=== PATIENT | female | born 1950 | race Caucasian/White ===

== ENCOUNTER 2016-11-26 18:18 | Emergency (ER) | payer MEDICARE ==
[~2016-11-26] VITALS: Ht 170.2 cm; Wt 84.0 kg
[~2016-11-26 18:18] MED LIST: BC FPOW12; CIME200 PO; CLON1TAB PO; EZET10 PO; PERC5TAB12 PO; REME15TA PO
[2016-11-26 18:20] VITALS: BP 145/81; PULSE 78; RESP 16; TEMP 97.9; O2SAT 97
[2016-11-26] MEDS ORDERED: REME30TA PO (18:56)
[2016-11-26] MEDS ORDERED: BENA25TA6 PO (18:56)
[2016-11-26] MEDS ORDERED: TRAM50TA PO (18:56)
[2016-11-26] MEDS ORDERED: CLON1 PO (18:56)
[2016-11-26] MEDS ORDERED: ZANT150T2 PO (18:56)
[2016-11-26] MEDS ORDERED: BAYE325T PO (18:56)
[2016-11-26 19:05] VITALS: BP 164/62; PULSE 78; RESP 18; TEMP 97.9; O2SAT 97
[2016-11-26] MEDS ORDERED: HYDROmorphone HCL PF 1 MG/ML VIAL IV PUSH ONE (19:30)
[2016-11-26] MEDS ORDERED: ONDANSETRON HCL 4 MG/2 ML VIAL IV PUSH ONE (19:30)
[2016-11-26] MEDS ORDERED: DEXAMETHASONE SOD PHOS 4 MG/ML VIAL IV PUSH ONE (19:30)
--- NOTE | 2016-11-26 19:36 | PD ---
HPI Chief Complaint: Pain: Acute or Chronic Time Seen by Provider: 19:25 Travel History International Travel<30 days: No Contact w/Intl Traveler<30days: No Traveled to known affect area: No History of Present Illness HPI 65-year-old female presents to the emergency department for progressively worsening right-sided and posterior neck pain since awakening on Friday. Patient has had previous cervical spine surgery numerous years ago and back surgery. Patient states she did not have any change in activity or any known injury prior to onset of symptoms. Patient states she felt well on Friday prior to going to bed and awakened with right-sided neck pain that initially she thought was related to sleeping wrong. Patient states pain is progressed and does radiate to the base of her skull. Patient has history of migraine but has been migraine free for numerous years and states that she feels that she does not get relief from her neck pain and she may develop a migraine. Patient does not report specifically headache migraine headache thunderclap headache sudden onset headache worst ever headache photophobia phonophobia nausea or vomiting. Patient denies any fever or chills. Patient has chronic rhinosinusitis related to environmental and seasonal allergens. Patient does not report any yellow-green drainage fever or chills or epistaxis. She does not report any chest pain or shortness of breath. Patient denies any new upper or lower extremity numbness tingling or weakness. Patient does have some tingling of the lower extremities that is related to history of PAD but does not report any claudication at this time. Patient has had previous aorto- bifemoral graft and stent to the lower extremities. Patient is under the care of Dr. caballero for peripheral vascular disease. Patient also has history of remote atrial fibrillation that has converted has had no recurrence of her atrial fibrillation and takes no blood thinning agents except for aspirin daily. Patient has had previous surgery to the right elbow and reconstruction of the right knee. Patient rates pain as 10 over 10 in intensity and worsened by attempted movement or with range of motion. 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, PAD, dyslipidemia, hypertension, migraine, thyroid nodule, appendectomy, hysterectomy; tobacco use, alcohol use; nursing notes reviewed Hx Anticoagulant Therapy: Yes (ASA DAILY) Arthritis: Yes (OSTEOARTHRITIS) Asthma: Yes ("BRONCHIAL ASTHMA") Atrial Fibrillation: Yes Autoimmune Disease: Yes (DRUG INDUCED lupus) Anxiety: Yes Depression: Yes Heart Rhythm Problems: Yes (AFIB / SVT PAC) Cancer: No Cardiovascular Problems: Yes (HTN, CHOL) Cerebral Palsy: No High Cholesterol: Yes Chest Pain: Yes Diabetes: No Diminished Hearing: No Endocrine: Yes Gastrointestinal Disorders: Yes GERD: Yes Genitourinary: Yes Hypertension: Yes Immune Disorder: No Implanted Vascular Access Dvce: Yes Medical other: Yes (DRUG INDUCED LUPUS, ARTHRITIS, ANEMIA) Musculoskeletal: Yes Neurologic: Yes Psychiatric: Yes (CLAUSTRAPHOBIA) Reproductive: No Respiratory: Yes (ASTHMA) Immunizations Current: Yes Migraines: Yes Thyroid Disease: Yes (NODULES) Triglycerides - High: Yes Tetanus Vaccination: < 5 Years Influenza Vaccination: Yes ?: Not Menopausal: Yes Tubal Ligation: Yes (1973) Past Surgical History Abdominal Surgery: No AICD: No Appendectomy: Yes (1975) Body Medical Devices: RIGHT ELBOW HARDWARE, PINS JUSTA SCREWS RT KNEE Cardiac Surgery: Yes (CARDIAC CATHERIZATION X2) Genitourinary Surgery: No Gynecologic Surgery: Yes ("BLADDER TUCK & VAGINAL LIFT" X 2, HYSTERECTOMY ) Hysterectomy: Yes Joint Replacement: Yes (RT KNEE RT HIP, RT ELBOW (WITH HARDWARE)) Oral Surgery: Yes (1993--SINUS SURGERY, TONSILLECTOMY) Pacemaker: No Tonsillectomy: Yes (1957) Other Surgery: Yes (2004.-R.ELBOW STENT RT GRAFT GROIN SINUS) Social History Alcohol Use: Yes (3X WEEKLY) Tobacco Use: Yes (1/2 TO 1 PK) Substance Use: No Allergies-Medications (Allergen,Severity, Reaction): Coded Allergies: Abilify (Unverified Allergy, Severe, TWITCHING, SPASMS, 11/26/16) Geodon (Unverified Allergy, Severe, MUSCLE SPASMS, 11/26/16) Neurontin (Verified Allergy, Severe, DYSKINESIA, 11/26/16) Verapamil (Verified Allergy, Severe, "DRUG INDUCED LUPUS", 11/26/16) Reported Meds & Prescriptions Reported Meds & Active Scripts Active Prednisone 50 Mg Tab 50 Mg PO DAILY 4 Days Robaxin (Methocarbamol) 750 Mg Tab 750 Mg PO Q6HR Lortab (Hydrocodone-Acetaminophen) 5-325 Mg Tab 1 Tab PO Q6H PRN Reported Remeron (Mirtazapine) 30 Mg Tab 30 Mg PO HS Benadryl Allergy (Diphenhydramine HCl) 25 Mg Tablet 1 Tab PO HS Zantac (Ranitidine HCl) 150 Mg Tab 150 Mg PO DAILY Adelita Aspirin (Aspirin) 325 Mg Tab 2,000 Mg PO DAILY Klonopin (Clonazepam) 1 Mg Tab 1 Mg PO BID PRN Tramadol (Tramadol HCl) 50 Mg Tab 50 Mg PO BID PRN Review of Systems Except as stated in HPI: all other systems reviewed are Neg General / Constitutional: No: Fever, Chills Eyes: No: Visual changes HENT: Positive: Headaches (base of head radiating from neck), Neck Stiffness, Neck Pain Cardiovascular: No: Chest Pain or Discomfort, Diaphoresis Respiratory: No: Shortness of Breath Gastrointestinal: No: Nausea, Vomiting Genitourinary: No: Flank Pain Musculoskeletal: Positive: Myalgias, Arthralgias, Pain (neck pain) Skin: No Rash Neurologic: Positive: Headache (base of head radiating from neck), No: Weakness, Dizziness, Syncope, Focal Abnormalities, Coordination Problem Psychiatric: No: Anxiety Hematologic/Lymphatic: No: Easy Bruising Physical Exam Narrative GENERAL: Well-developed well-nourished female in no acute respiratory distress intermittently tearful complaining of right posterior neck pain worsened by movement SKIN: Warm and dry. HEAD: Atraumatic. Normocephalic. EYES: Pupils equal and round. No scleral icterus. No injection or drainage. ENT: No nasal bleeding or discharge. Mucous membranes pink and moist. NECK: Trachea midline. No JVD. Reproducible tenderness to base of cervical spine without bony step-off without soft tissue swelling or induration or fluctuance and along the right paracervical musculature. CARDIOVASCULAR: Regular rate and rhythm. RESPIRATORY: No accessory muscle use. Clear to auscultation. Breath sounds equal bilaterally. GASTROINTESTINAL: Abdomen soft, non-tender, nondistended. Hepatic and splenic margins not palpable. MUSCULOSKELETAL: Extremities without clubbing, cyanosis, or edema. No obvious deformities. NEUROLOGICAL: Awake and alert. No obvious cranial nerve deficits. Motor grossly within normal limits. Five out of 5 muscle strength in the arms and legs. Normal speech. PSYCHIATRIC: Appropriate mood and affect; insight and judgment normal. Data Data Last Documented VS Vital Signs Date Time Temp Pulse Resp B/P Pulse Ox O2 Delivery O2 Flow Rate FiO2 11/26/16 20:45 80 18 166/74 96 Room Air 11/26/16 19:05 97.9 Orders ^ Saline Lock (11/26/16 19:26) Complete Blood Count With Diff (11/26/16 19:26) Basic Metabolic Panel (Bmp) (11/26/16 19:26) Act Partial Throm Time (Ptt) (11/26/16 19:26) Prothrombin Time / Inr (Pt) (11/26/16 19:26) Ondansetron Inj (Zofran Inj) (11/26/16 19:30) Dexamethasone Inj (Decadron Inj) (11/26/16 19:30) Hydromorphone Pf Inj (Dilaudid Pf Inj) (11/26/16 19:30) Ice/Cold Pack (11/26/16 19:26) Ct Cerv Spine W/O Contrast (11/26/16 ) Ketorolac Inj (Toradol Inj) (11/26/16 22:00) Labs Laboratory Tests Test 11/26/16 19:40 White Blood Count 10.9 TH/MM3 Red Blood Count 4.69 MIL/MM3 Hemoglobin 14.0 GM/DL Hematocrit 42.1 % Mean Corpuscular Volume 89.8 FL Mean Corpuscular Hemoglobin 29.9 PG Mean Corpuscular Hemoglobin 33.3 % Concent Red Cell Distribution Width 13.7 % Platelet Count 260 TH/MM3 Mean Platelet Volume 8.4 FL Neutrophils (%) (Auto) 59.9 % Lymphocytes (%) (Auto) 32.5 % Monocytes (%) (Auto) 5.7 % Eosinophils (%) (Auto) 1.3 % Basophils (%) (Auto) 0.6 % Neutrophils # (Auto) 6.6 TH/MM3 Lymphocytes # (Auto) 3.6 TH/MM3 Monocytes # (Auto) 0.6 TH/MM3 Eosinophils # (Auto) 0.1 TH/MM3 Basophils # (Auto) 0.1 TH/MM3 CBC Comment DIFF FINAL Differential Comment Prothrombin Time 10.0 SEC Prothromb Time International 0.9 RATIO Ratio Activated Partial 25.3 SEC Thromboplast Time Sodium Level 143 MEQ/L Potassium Level 4.1 MEQ/L Chloride Level 108 MEQ/L Carbon Dioxide Level 25.0 MEQ/L Anion Gap 10 MEQ/L Blood Urea Nitrogen 11 MG/DL Creatinine 0.75 MG/DL Estimat Glomerular Filtration 77 ML/MIN Rate Random Glucose 106 MG/DL Calcium Level 8.8 MG/DL MDM Medical Decision Making Medical Screen Exam Complete: Yes Emergency Medical Condition: Yes Medical Record Reviewed: Yes Interpretation(s) Last Impressions Cervical Spine CT 11/26/16 0000 Signed Impressions: Service Date/Time: Saturday, November 26, 2016 20:29 - CONCLUSION: Normal examination for a patient of this age. Gerry Rodriguez MD CBC & BMP Diagram 11/26/16 19:40 Vital Signs Date Time Temp Pulse Resp B/P Pulse Ox O2 Delivery O2 Flow Rate FiO2 11/26/16 20:45 80 18 166/74 96 Room Air 11/26/16 20:45 18 11/26/16 19:45 78 18 162/76 97 Room Air 11/26/16 19:05 97.9 78 18 164/62 97 Room Air 11/26/16 18:20 97.9 78 16 145/81 97 Differential Diagnosis Musculoskeletal pain degenerative disc disease HNP cervical radiculopathy abscess; patient does not appear to have history or exam consistent with meningitis or acute infectious process Narrative Course Patient placed on athletic monitor IV access obtained specimens collected patient administered medication Patient noting improvement of symptoms after pain medication administered Patient resting comfortably waiting for imaging results of her lab values are in normal range @ 22:10 symptomatically improved and stable for outpatient management Diagnosis Primary Impression: Cervical spine pain Additional Impression: Degenerative disc disease, cervical Referrals: Primary Care Physician 1 day Patient Instructions: General Instructions Additional Instructions: Apply moist heat to area of muscle spasm as needed intermittently Take medications as prescribed-- be aware that narcotic pain medication and muscle relaxants may delay reaction time impaired judgment or increases for fall use with caution and do not drive or drink alcoholic beverages while taking either of these medications While taking steroid do not take ibuprofen/Advil/Motrin or Aleve/Naprosyn/ naproxen While taking narcotic pain medication do not take tramadol/Ultram Increase fluid hydration Follow-up with primary care provider call office in a.m. to schedule follow-up appointment Return to the emergency department for any concerns or change in condition Med/Other Pt SpecificInfo: Prescription(s) given Scripts Prednisone 50 Mg Tab50 Mg PO DAILY 4 Days Ref 0 Prov:Erinn Ramirez MD 11/26/16 Methocarbamol (Robaxin)750 Mg [id number] Mg PO Q6HR #15 TAB Ref 0 Prov:Erinn Ramirez MD 11/26/16 Hydrocodone-Acetaminophen (Lortab)5-325 Mg Tab1 Tab PO Q6H PRN (PAIN) #10 TAB Ref 0 Prov:Erinn Ramirez MD 11/26/16 Disposition: 01 DISCHARGE HOME Condition: Stable Erinn Ramirez MD Nov 26, 2016 19:36
[2016-11-26 19:45] VITALS: BP 162/76; PULSE 78; RESP 18; O2SAT 97
[2016-11-26 19:50] LABS: AUTOMATED NEUTROPHIL # 6.6 TH/MM3 (1.8-7.7); BASOPHIL # 0.1 TH/MM3 (0-0.2); BASOPHIL % 0.6 % (0.0-2.0); EOSINOPHIL # 0.1 TH/MM3 (0-0.4); EOSINOPHIL % 1.3 % (0.0-4.0); HEMATOCRIT 42.1 % (35.0-46.0); HEMO FLAGS DIFF FINAL; LYMPH % 32.5 % (9.0-44.0); LYMPHOCYTE # 3.6 TH/MM3 (1.0-4.8); MEAN CELL VOLUME 89.8 FL (80.0-100.0); MEAN CORPUSCULAR HEMOGLOBIN 29.9 PG (27.0-34.0); MEAN CORPUSCULAR HGB CONC 33.3 % (32.0-36.0); MONO % 5.7 % (0.0-8.0); NEUT % 59.9 % (16.0-70.0); PLATELET COUNT 260 TH/MM3 (150-450); RED BLOOD COUNT 4.69 MIL/MM3 (4.00-5.30); RED CELL DISTRIBUTION WIDTH 13.7 % (11.6-17.2); WHITE BLOOD COUNT 10.9 TH/MM3 (4.0-11.0)
[2016-11-26 20:03] LABS: POTASSIUM 4.1 MEQ/L (3.5-5.1)
[2016-11-26 20:09] LABS: APTT (PATIENT) 25.3 SEC (24.3-30.1); INTERNATIONAL NORMALIZED RATIO 0.9 RATIO
[2016-11-26 20:45] VITALS: BP 166/74; PULSE 80; RESP 18; O2SAT 96
--- NOTE | 2016-11-26 21:37 | RADHPO ---
EXAM DATE/TIME: 11/26/2016 20:29 [facility] COMPARISON: No previous studies available for comparison. INDICATIONS : Right and posterior neck pain. RADIATION DOSE: 26.74 CTDIvol (mGy) MEDICAL HISTORY : Hypertension. SURGICAL HISTORY : Cervical and thoracic surgery. Foramenectomy. ENCOUNTER: Initial ACUITY: 2 days PAIN SCALE: 10/10 LOCATION: Right neck posterior. TECHNIQUE: Volumetric scanning of the cervical spine was performed. Multiplanar reconstructions in the sagittal, coronal and oblique axial planes were performed. Using automated exposure control and adjustment o f the mA and/or kV according to patient size, radiation dose was kept as low as reasonably achievable to obtain optimal diagnostic quality images. FINDINGS: No fracture or spondylolisthesis. Mild degenerative disc disease. Mild to moderate facet arthropathy. No significant bony canal stenosis. Multilevel mild foraminal encroachment. Enlargement of the right lobe of the thyroid gland with multiple nodules present. CONCLUSION: Normal examination for a patient of this age. Gerry Rodriguez MD on November 26, 2016 at 21:31 Board Certified Radiologist. This report was verified electronically.
[2016-11-26 22:00] VITALS: BP 162/79; PULSE 82; RESP 18; O2SAT 95
[2016-11-26] MEDS ORDERED: KETOROLAC TROMETHAMINE 30 MG/ML (IVP) VIAL IV PUSH ONE (22:00)
[2016-11-26] MEDS ORDERED: PRED50 PO (22:10)
[2016-11-26] MEDS ORDERED: ROBA750T PO (22:10)
[2016-11-26] MEDS ORDERED: HYDR-3533 PO (22:10)
== END 2016-11-26 22:42 | disposition home or self-care (01) ==
LOC: PHED 18:18
DX: M54.2 Cervicalgia (principal); I48.91 Unspecified atrial fibrillation; I10 Essential (primary) hypertension; J45.909 Unspecified asthma, uncomplicated; E78.00 Pure hypercholesterolemia, unspecified; E04.1 Nontoxic single thyroid nodule; F17.210 Nicotine dependence, cigarettes, uncomplicated; Z79.01 Long term (current) use of anticoagulants
CPT/HCPCS: 72125; 80048; 85025; 85610; 85730; 96374; 96375; 99285; J1100; J1170; J1885; J2405

== ENCOUNTER → 2017-07-03 | Outpatient (CLI) | payer MEDICARE ==
[~2017-07-03] VITALS: Ht 170.2 cm; Wt 86.2 kg
[~2017-07-03] MED LIST changes: +AMOX500C PO; -BC FPOW12; +CHLORHEXIDINE GLUCONATE 2 % 1 PACK (2 CLOTHS) TOPICAL PRN; -CIME200 PO; +CLON1 PO; -CLON1TAB PO; -EZET10 PO; +INSULIN HUMAN REGULAR 1,000 UNITS/10 ML VIAL SQ PRN; +LACTATED RINGER'S 1000 ML IV PRN; +LIDOCAINE HCL 1% PF 5 ML SYRINGE OTHER ONE; +LISI10TA3 PO; +METOPROLOL TARTRATE 25 MG TAB PO PRN; +PANT40TA3 PO; -PERC5TAB12 PO; +POVIDONE IODINE 5% (ANTISEPSIS KIT) 4 APPLICATIONS EACH NARE PRN; +PROPOFOL 200 MG/20 ML AMP IV ONE; +PROPOFOL 200 MG/20 ML AMP ONE; -REME15TA PO; +REME30TA PO; +SODIUM CHLORID 0.9% 500 ML IV PRN; +SUCR1TAB PO; +TRAM50TA PO; +TYLE325T PO
--- NOTE | 2017-07-03 12:02 | PD.PROCEDR ---
GI Procedure PROCEDURE PERFORMED EGD with biopsy followed by endoscopic ultrasound INDICATION FOR PROCEDURE Gastric nodule PROCEDURE: The procedure, risks and benefits were discussed with Ms. Calloway and informed consent was obtained. Anesthesia sedated her with Diprivan. She was placed in the left lateral decubitus position. EGD: The Pentax videoscope was introduced through the oropharynx and advanced to the second portion of the duodenum under direct visualization. Retroflexion was performed in the stomach. FINDINGS: Esophagus this was normal Stomach there was a large hiatal hernia there was also nodular mucosa in the antrum with erythema and edema suggestive of nodular gastritis was biopsied the rest of the stomach was unremarkable Duodenum this appeared to be unremarkable and within normal limits Endoscopic ultrasound: The Pentax videoscope was introduced through the oropharynx and advanced to the second portion of the duodenum FINDINGS: The gastric mucosa appeared to show the antral mucosa to have mucosal edema and thickening otherwise unremarkable No lymphadenopathy was noted The pancreas appeared to be unremarkable with normal limits Pancreatic duct was normal Common bile duct was normal Gallbladder showed some filling defects suggestive of gallstones ESTIMATED BLOOD LOSS: None SPECIMENS REMOVED: Antral biopsies COMPLICATIONS: None IMPRESSION: Hiatal hernia Nodular gastritis Gallstones PLAN: Await biopsies Follow up in clinic Continue PPI Torres Tineo MD Jul 03, 2017 12:02
[2017-07-03 12:45] VITALS: BP 138/60; PULSE 71; RESP 18; TEMP 98.7; O2SAT 96
--- NOTE | 2017-07-03 22:53 | EKG ---
Date Performed: 07/03/2017 Time Performed: 09:20:19 PTAGE: 66 years EKG: Sinus rhythm RIGHT BUNDLE BRANCH BLOCK ABNORMAL ECG PREVIOUS TRACING : 12/28/2013 16.23 Since the prior tracing, there has been no significant rajput DOCTOR: Cr Harrison Interpretating Date/Time 07/03/2017 22:53:15
== END ==
LOC: HSDC 08:50
PROVIDERS: ATTEND Internal Medicine Gastroenterology
DX: K31.89 Other diseases of stomach and duodenum (principal); K44.9 Diaphragmatic hernia without obstruction or gangrene; I10 Essential (primary) hypertension; F17.210 Nicotine dependence, cigarettes, uncomplicated
CPT/HCPCS: 00731; 43239; 43259; 88305; 88312; 93005; J7120